=== PATIENT | female | born 1980 | race American Indian/Alaskan Native ===

== ENCOUNTER 2016-10-12 10:40 | Emergency (ER) | payer BC, OTHER ==
[2016-10-12 10:49] VITALS: BP 117/72; PULSE 58; TEMP 98.6; O2SAT 99; BMI 28.7
[2016-10-12] MEDS ORDERED: cefTRIAXone (Rocephin) 250 mg Inj IM ONE (11:24)
[2016-10-12] MEDS ORDERED: cefTRIAXone (Rocephin) 250 mg Inj ONE (11:55)
--- NOTE | 2016-10-12 12:03 | ED PDOC ---
HPI: Female Pain Time Seen by Provider: 10/12/16 12:01 Chief Complaint (Nursing): Female Genitourinary Chief Complaint (Provider): vaginal d/c History Per: Patient History/Exam Limitations: no limitations Additional Complaint(s): 22yo F in ED for eval of vagina d/c x 3-4 days noted after having unprotected sex with new partner-states she has vaginal wall pain, yellow d/c and suprapubic pain.no fever chills nausea vomiting. no vaginal wall lesions no vaginal bleeding. Past Medical History Reviewed: Historical Data, Nursing Documentation, Vital Signs Vital Signs: Last Vital Signs Temp 98.6 F 10/12/16 10:48 Pulse 58 L 10/12/16 10:48 Resp BP 117/72 10/12/16 10:48 Pulse Ox 99 10/12/16 10:48 - Medical History PMH: No Chronic Diseases Denies: Depression - Family History Family History: States: Unknown Family Hx - Home Medications Home Medications: Ambulatory Orders Medication Instructions Recorded Ibuprofen [Motrin] 600 mg PO TID PRN #30 tab 04/05/16 Polymyxin/Trimethoprim Sulfate 1 drop .ROUTE Q3 #1 bottle 04/05/16 [Polytrim Ophth Soln] - Allergies Allergies/Adverse Reactions: Allergies Allergy/AdvReac Type Severity Reaction Status Date / Time No Known Allergies Allergy Verified 07/25/12 17:19 Review of Systems ROS Statement: Except As Marked, All Systems Reviewed And Found Negative Genitourinary Female: Positive for: Vaginal Discharge, Pelvic Pain Physical Exam - Reviewed Nursing Documentation Reviewed: Yes Vital Signs Reviewed: Yes - Physical Exam Appears: Positive for: Well, Non-toxic, No Acute Distress Head Exam: Positive for: ATRAUMATIC, NORMAL INSPECTION, NORMOCEPHALIC Skin: Positive for: Normal Color, Warm, DRY ENT: Positive for: Normal ENT Inspection Cardiovascular/Chest: Positive for: Regular Rate, Rhythm Respiratory: Positive for: CNT, Normal Breath Sounds Gastrointestinal/Abdominal: Positive for: Normal Exam, Bowel Sounds, Soft. Negative for: Tenderness Pelvic Exam: Positive for: External Exam Normal, Discharge (yellow), Tender W/ Cervical Motion, Tender Adnexa, Tender Uterus. Negative for: Speculum Exam Normal, Bimanual Exam Normal Back: Negative for: Normal Inspection Neurologic/Psych: Positive for: Alert, Oriented - ECG O2 Sat by Pulse Oximetry: 99 Medical Decision Making Medical Decision Making: Medical Decision Making Medical Decision Making: pt will get prophylactic tx in ED via [id number] and Rocephin 250mg IM STI testing performed pt advised to abstain from sexual intercourse until results are in ., Disposition - Clinical Impression Clinical Impression: Vaginal discharge - Patient ED Disposition Is Patient to be Admitted: No Counseled Patient/Family Regarding: Studies Performed, Diagnosis, Need For Followup - Disposition Disposition: Routine/Home Disposition Time: 12:05 Condition: STABLE Instructions: Safe Sex (ED), Chlamydia (ED), Sexually Transmitted Diseases (ED) , Condom Use (ED)
== END 2016-10-12 12:28 | disposition home or self-care (01) ==
LOC: H.ER 10:40
DX: N89.8 Other specified noninflammatory disorders of vagina (principal); R10.2 Pelvic and perineal pain
CPT/HCPCS: 81025; 87491; 87591; 96372; 99283; J0696

== ENCOUNTER 2017-07-05 10:34 | Emergency (ER) | payer BC ==
[2017-07-05 10:36] VITALS: BMI 28.2
[2017-07-05] MEDS ORDERED: Oxycodone/Acetaminophen 5/325 mg Tab PO ONE (11:25)
[2017-07-05] MEDS ORDERED: Oxycodone/Acetaminophen 5/325 mg Tab ONE (11:43)
--- NOTE | 2017-07-05 12:16 | ED PDOC ---
Upper Extremity Pain/Injury Time Seen by Provider: 07/05/17 10:44 Chief Complaint (Nursing): Upper Extremity Problem/Injury Chief Complaint (Provider): Right Shoulder Pain History Per: Patient History/Exam Limitations: no limitations Onset/Duration Of Symptoms: Days (x 3) Current Symptoms Are (Timing): Still Present Additional Complaint(s): Ms. Riggins is a 37 year old female who presents to the ED for right shoulder pain since yesterday. Patient states she was lifting heavy cart on Wednesday where she developed right shoulder pain, which has worsen prompting her visit. Patient states she has difficulty moving shoulder. Patient states lift arm with difficulty. Denies swelling or redness in the area. Patient states she took advil prior to arrival with some relief. Denies any other medical complaints. PMD: Urgent Care in [place] Past Medical History Reviewed: Historical Data, Nursing Documentation, Vital Signs Vital Signs: Last Vital Signs Temp 98.6 F 07/05/17 10:37 Pulse 60 07/05/17 10:37 Resp 17 07/05/17 10:37 BP 126/77 07/05/17 10:37 Pulse Ox 99 07/05/17 10:37 - Medical History PMH: No Chronic Diseases Denies: Depression - Surgical History Surgical History: No Surg Hx - Family History Family History: States: Unknown Family Hx - Home Medications Home Medications: Ambulatory Orders Medication Instructions Recorded Ibuprofen [Motrin] 600 mg PO TID PRN #30 tab 04/05/16 Polymyxin/Trimethoprim Sulfate 1 drop .ROUTE Q3 #1 bottle 04/05/16 [Polytrim Ophth Soln] Cyclobenzaprine [Cyclobenzaprine 10 mg PO TID #15 tab 07/05/17 HCl] Naproxen 500 mg PO BID #20 ect 07/05/17 - Allergies Allergies/Adverse Reactions: Allergies Allergy/AdvReac Type Severity Reaction Status Date / Time No Known Allergies Allergy Verified 07/25/12 17:19 Review of Systems ROS Statement: Except As Marked, All Systems Reviewed And Found Negative Musculoskeletal: Positive for: Shoulder Pain (Right) Skin: Negative for: Other (Swelling or redness) Physical Exam - Reviewed Nursing Documentation Reviewed: Yes Vital Signs Reviewed: Yes - Physical Exam Appears: Positive for: Well, Non-toxic, No Acute Distress Head Exam: Positive for: ATRAUMATIC Skin: Positive for: Warm, Dry Eye Exam: Positive for: EOMI Neck: Positive for: Painless ROM Cardiovascular/Chest: Positive for: Regular Rate, Rhythm Respiratory: Negative for: Respiratory Distress Extremity: Positive for: Tenderness (Mild), Other (Right Shoulder- (+): Limited ROM secondary to pain). Negative for: Normal ROM, Deformity, Swelling (or redness) Neurologic/Psych: Positive for: Alert, Oriented - ECG O2 Sat by Pulse Oximetry: 99 (RA) Pulse Ox Interpretation: Normal Medical Decision Making Medical Decision Making: Time: 11:25 Impression(s): Right Shoulder Pain Differentials include, but not limited to: Rotator Cuff Injury, Muscle Sprain Plan: - Flexeril 10 mg PO STAT - Percocet 5/325 mg Tab - Toradol 30 mg IM STAT Scribe Attestation: Documented by Jon Rouse, acting as a scribe for Osmin Stringer MD. Provider Scribe Attestation: All medical record entries made by the Scribe were at my direction and personally dictated by me. I have reviewed the chart and agree that the record accurately reflects my personal performance of the history, physical exam, medical decision making, and the department course for this patient. I have also personally directed, reviewed, and agree with the discharge instructions and disposition. Disposition - Clinical Impression Clinical Impression: Shoulder injury, Shoulder pain - Patient ED Disposition Is Patient to be Admitted: No Doctor Will See Patient In The: Office Counseled Patient/Family Regarding: Studies Performed, Diagnosis, Need For Followup - Disposition Referrals: [facility] [Outside] Disposition: Routine/Home Disposition Time: 12:46 Condition: GOOD Additional Instructions: Take your medications as instructed. Follow up with your PCP in 2-3 days. Prescriptions: Cyclobenzaprine [Cyclobenzaprine HCl] 10 mg PO TID #15 tab Naproxen 500 mg PO BID #20 ect Instructions: Shoulder Pain (DC) Forms: [facility] ED School/Work Excuse
[2017-07-05 12:46] VITALS: BP 120/78; PULSE 78; RESP 18; TEMP 97
[2017-07-05 12:47] VITALS: O2SAT 99
== END 2017-07-05 13:07 | disposition home or self-care (01) ==
LOC: H.ER 10:34
DX: M25.511 Pain in right shoulder (principal)
CPT/HCPCS: 96372; 99282; J1885